=== PATIENT | male | born 1980 | race African-American/Black ===

== ENCOUNTER 2023-03-06 19:14 | Emergency (ER) | payer MEDICAID ==
[~2023-03-06] VITALS: Ht 177.8 cm; Wt 90.7 kg
[2023-03-06 19:29] VITALS: BP 121/77; PULSE 74; RESP 18; TEMP 98.2; O2SAT 97
[2023-03-06 19:56] VITALS: BP 127/87; PULSE 62; RESP 18; TEMP 98.2; O2SAT 97
== END 2023-03-06 19:59 | disposition home or self-care (01) ==
LOC: ER 19:14
DX: R53.83 Other fatigue (principal)
CPT/HCPCS: 93005; 99283